=== PATIENT | male | born 1955 | race Caucasian/White ===

== ENCOUNTER 2018-05-17 10:30 | Emergency (ER) | payer BC ==
[2018-05-17] MEDS ORDERED: Aspirin 81 MG Tab.Chew PO ONE (10:41)
[2018-05-17] MEDS ORDERED: Ondansetron 4 MG/2 ML SDV IVPUSH ONE (11:25)
--- NOTE | 2018-05-17 11:35 | EDM.PDOC ---
ED HPI GENERAL MEDICAL PROBLEM - General Chief Complaint: Chest Pain Stated Complaint: sudden weakness Time Seen by Provider: 05/17/18 10:50 Source of Information: Reports: Patient, Significant Other History Limitations: Reports: No Limitations - History of Present Illness INITIAL COMMENTS - FREE TEXT/NARRATIVE: Patient presents with report of sudden onset of weakness and lightheadedness. He was shaving when this started he says, but his has to tell me what he told her on the phone because he can't remember what happened. He doesn't know the day, date, month or year. He doesn't know his birthday; after thinking for several seconds he told me his son's name. His tells me that this is pretty normal for the past 3+ years, but he usually would be able to tell me what happened today in better detail, as he did tell her on the phone earlier. He denies falling or any asymmetric weakness. No facial droop or history of stroke. says the sudden onset of weakness was about 9:45 this morning. - Related Data Allergies Allergy/AdvReac Type Severity Reaction Status Date / Time No Known Allergies Allergy Verified 05/17/18 10:40 Home Meds: Home Meds Escitalopram [Lexapro] 20 mg PO DAILY 05/17/18 [History] Levothyroxine [Levothroid] 137 mcg PO DAILY 05/17/18 [History] Mirtazapine 1 tab PO BEDTIME 05/17/18 [History] buPROPion [buPROPion XL] 300 mg PO DAILY 05/17/18 [History] Past Medical History - Past Surgical History HEENT Surgical History: Reports: Other (See Below) Other HEENT Surgeries/Procedures: ear surgery GI Surgical History: Reports: Cholecystectomy Endocrine Surgical History: Reports: Thyroidectomy Musculoskeletal Surgical History: Reports: Arthroscopic Knee, Shoulder Surgery Social & Family History - Tobacco Use Smoking Status *Q: Never Smoker - Recreational Drug Use Recreational Drug Use: No ED ROS GENERAL - Review of Systems Review Of Systems: See Below Constitutional: Reports: Weakness. Denies: Fever, Chills, Malaise HEENT: Denies: Ear Pain, Throat Pain, Vision Change Respiratory: Denies: Shortness of Breath, Cough Cardiovascular: Reports: Lightheadedness. Denies: Chest Pain, Syncope Endocrine: Reports: Other (hypothyroid) GI/Abdominal: Reports: Nausea. Denies: Abdominal Pain, Diarrhea, Vomiting : Reports: No Symptoms Musculoskeletal: Denies: Neck Pain, Shoulder Pain, Arm Pain, Back Pain, Hand Pain Skin: Denies: Cyanosis, Jaundice, Mottled, Pallor, Diaphoresis Neurological: Reports: Confusion (chronic). Denies: Dizziness, Headache, Numbness, Seizure, Syncope, Trouble Speaking, Difficulty Walking, Weakness Psychiatric: Reports: Confusion, Depression. Denies: Agitation, Anxiety - Physical Exam Exam: See Below Exam Limited By: No Limitations General Appearance: Alert, WD/WN, No Apparent Distress Eye Exam: Bilateral Eye: EOMI, Normal Inspection (full visual valente), PERRL Ears: Normal External Exam, Hearing Grossly Normal Nose: Normal Inspection, No Blood Throat/Mouth: Normal Inspection, Normal Lips, Normal Voice, No Airway Compromise Head Exam: Atraumatic, Normocephalic Neck: Normal Inspection, Supple, Non-Tender, Full Range of Motion. No: Carotid Bruit Respiratory/Chest: No Respiratory Distress, Lungs Clear, Normal Breath Sounds, No Accessory Muscle Use Cardiovascular: Normal Peripheral Pulses, Regular Rate, Rhythm, No Edema, No Gallop, No JVD, No Murmur, No Rub GI/Abdominal: Normal Bowel Sounds, Soft, Non-Tender, No Organomegaly, No Distention, No Abnormal Bruit, No Mass Neuro Exam (Abbreviated): Alert, CN II-XII Intact, No Motor/Sensory Deficits, Confused, Memory Loss Remote Events, Memory Loss Recent Events Back Exam: No: CVA Tenderness (L), CVA Tenderness (R) Extremities: Normal Inspection, Normal Range of Motion, Non-Tender, No Pedal Edema Psychiatric: Flat Affect, Other (apathetic and oblivious but alert and somewhat anxious) Skin Exam: Warm, Dry, Intact, Normal Color, No Rash Course - Vital Signs Last Recorded V/S: Last Vital Signs Temp 97.1 F 05/17/18 11:04 Pulse 73 05/17/18 11:50 Resp 14 05/17/18 11:50 BP 109/60 05/17/18 11:50 Pulse Ox 92 L 05/17/18 11:50 - Orders/Labs/Meds Orders: Active Orders 24 hr Category Date Time Status EKG Documentation Completion [RC] ASDIRECTED Care 05/17/18 10:41 Active EKG 12 Lead [EK] Routine Ther 05/17/18 10:41 Ordered Labs: Laboratory Tests 05/17/18 05/17/18 05/17/18 Range/Units 10:55 10:55 10:55 WBC 6.44 (5.00-10.00) 10^3/uL RBC 5.35 (4.50-6.00) 10^6/uL Hgb 16.4 (13.0-17.0) g/dL Hct 47.5 (40.0-52.0) % MCV 88.8 D (82.0-92.0) fL MCH 30.7 (27.0-31.0) pg MCHC 34.5 (32.0-36.0) g/dL RDW 13.6 (11.5-14.5) % Plt Count 115 L (150-400) 10^3/uL MPV 10.3 (7.4-10.4) fL Immature Gran % (Auto) 0.2 (0.0-5.0) % Neut % (Auto) 75.0 H (50.0-70.0) % Lymph % (Auto) 18.8 L (20.0-40.0) % [place] % (Auto) 5.3 (2.0-8.0) % Eos % (Auto) 0.5 L (1.0-3.0) % Baso % (Auto) 0.2 (0.0-1.0) % Immature Gran # (Auto) 0.01 (0.00-0.50) 10^3/uL Neut # (Auto) 4.84 (2.50-7.00) 10^3/uL Lymph # (Auto) 1.21 (1.00-4.00) 10^3/uL [place] # (Auto) 0.34 (0.10-0.80) 10^3/uL Eos # (Auto) 0.03 L (0.10-0.30) 10^3/uL Baso # (Auto) 0.01 (0.00-0.10) 10^3/uL Sodium 140 (136-145) mmol/L Potassium 4.0 (3.3-5.3) mmol/L Chloride 105 (98-115) mmol/L Carbon Dioxide 25.4 (21.0-32.0) mmol/L Anion Gap 13.6 (5-15) mmol/L BUN 11 (6-25) mg/dL Creatinine 0.89 (0.51-1.17) mg/dL Est Cr Clr Drug Dosing 87.72 mL/min Estimated GFR (MDRD) > 60 mL/min Glucose 116 H (75 - 99) mg/dL Calcium 8.9 (8.7-10.3) mg/dL Troponin I < 0.04 (0.00-0.070) ng/mL TSH, Ultra Sensitive 0.810 (0.340-4.820) uIU/mL Specimen Type Urine Color (YELLOW) Urine Appearance (CLEAR) Urine pH (5.0-9.0) Ur Specific [place] (1.005-1.030) Urine Protein (NEGATIVE) mg/dL Urine Glucose (UA) (NEGATIVE) mg/dL Urine Ketones (NEGATIVE) mg/dL Urine Occult Blood (NEGATIVE) Urine Nitrite (NEGATIVE) Urine Bilirubin (NEGATIVE) Urine Urobilinogen (0.2-1.0) E.U./dL Ur Leukocyte Esterase (NEGATIVE) Urine RBC (0-5) /HPF Urine WBC (0-5) /HPF Ur Epithelial Cells /LPF Urine Bacteria (NONE TO FEW) /HPF Urine Opiates Screen (NEGATIVE) Ur Oxycodone Screen (NEGATIVE) Urine Methadone Screen (NEGATIVE) Ur Propoxyphene Screen (NEGATIVE) Ur Barbiturates Screen (NEGATIVE) Ur Tricyclics Screen (NEGATIVE) Ur Phencyclidine Scrn (NEGATIVE) Ur Amphetamine Screen (NEGATIVE) U Methamphetamines Scrn (NEGATIVE) U Benzodiazepines Scrn (NEGATIVE) U Cocaine Metab Screen (NEGATIVE) U Marijuana (THC) Screen (NEGATIVE) 05/17/18 05/17/18 Range/Units 12:36 12:36 WBC (5.00-10.00) 10^3/uL RBC (4.50-6.00) 10^6/uL Hgb (13.0-17.0) g/dL Hct (40.0-52.0) % MCV (82.0-92.0) fL MCH (27.0-31.0) pg MCHC (32.0-36.0) g/dL RDW (11.5-14.5) % Plt Count (150-400) 10^3/uL MPV (7.4-10.4) fL Immature Gran % (Auto) (0.0-5.0) % Neut % (Auto) (50.0-70.0) % Lymph % (Auto) (20.0-40.0) % [place] % (Auto) (2.0-8.0) % Eos % (Auto) (1.0-3.0) % Baso % (Auto) (0.0-1.0) % Immature Gran # (Auto) (0.00-0.50) 10^3/uL Neut # (Auto) (2.50-7.00) 10^3/uL Lymph # (Auto) (1.00-4.00) 10^3/uL [place] # (Auto) (0.10-0.80) 10^3/uL Eos # (Auto) (0.10-0.30) 10^3/uL Baso # (Auto) (0.00-0.10) 10^3/uL Sodium (136-145) mmol/L Potassium (3.3-5.3) mmol/L Chloride (98-115) mmol/L Carbon Dioxide (21.0-32.0) mmol/L Anion Gap (5-15) mmol/L BUN (6-25) mg/dL Creatinine (0.51-1.17) mg/dL Est Cr Clr Drug Dosing mL/min Estimated GFR (MDRD) mL/min Glucose (75 - 99) mg/dL Calcium (8.7-10.3) mg/dL Troponin I (0.00-0.070) ng/mL TSH, Ultra Sensitive (0.340-4.820) uIU/mL Specimen Type Urinblad Urine Color Yellow (YELLOW) Urine Appearance Slightly cloudy H (CLEAR) Urine pH 6.0 (5.0-9.0) Ur Specific [place] >= 1.030 (1.005-1.030) Urine Protein Negative (NEGATIVE) mg/dL Urine Glucose (UA) Negative (NEGATIVE) mg/dL Urine Ketones Trace H (NEGATIVE) mg/dL Urine Occult Blood Negative (NEGATIVE) Urine Nitrite Negative (NEGATIVE) Urine Bilirubin Negative (NEGATIVE) Urine Urobilinogen 0.2 (0.2-1.0) E.U./dL Ur Leukocyte Esterase Negative (NEGATIVE) Urine RBC 0-5 (0-5) /HPF Urine WBC 0-5 (0-5) /HPF Ur Epithelial Cells Few /LPF Urine Bacteria Few (NONE TO FEW) /HPF Urine Opiates Screen Negative (NEGATIVE) Ur Oxycodone Screen Negative (NEGATIVE) Urine Methadone Screen Negative (NEGATIVE) Ur Propoxyphene Screen Negative (NEGATIVE) Ur Barbiturates Screen Negative (NEGATIVE) Ur Tricyclics Screen Negative (NEGATIVE) Ur Phencyclidine Scrn Negative (NEGATIVE) Ur Amphetamine Screen Negative (NEGATIVE) U Methamphetamines Scrn Negative (NEGATIVE) U Benzodiazepines Scrn Negative (NEGATIVE) U Cocaine Metab Screen Negative (NEGATIVE) U Marijuana (THC) Screen Negative (NEGATIVE) Meds: Medications Discontinued Medications Generic Name Dose Route Start Last Admin Trade Name [place] PRN Reason Stop Dose Admin Aspirin 324 mg 05/17/18 10:41 05/17/18 11:10 Aspirin PO 05/17/18 10:42 324 mg ONETIME ONE Administration Ondansetron HCl 4 mg 05/17/18 11:25 05/17/18 11:30 Zofran IVPUSH 05/17/18 11:26 4 mg ONETIME ONE Administration - Re-Assessments/Exams Free Text/Narrative Re-Assessment/Exam: 05/17/18 13:[address] is negative for acute pathology. Labs okay. Discussed findings with patient, and adult son. They are concerned with his amnesia progressing, he now cannot remember shaving this morning. Initially he told me he was shaving but couldn't describe to me what happened. Now he can't remember shaving. and son tell me that this isn't normal for him. He became tearful and said he doesn't want to live anymore. When I asked him if he is a danger to himself or how he would kill himself he wouldn't answer. He has had chronic problems with memory but not like this and they want to rule out stroke and get going with treatment for it and/or whatever is causing the amnesia and depression. I called and discussed case with Dr. Heck, stroke neurologist, who feels emergent MRI is needed and wants him to come to the ER for further evaluation. Dr. Flores, ER is accepting. Patient and family are agreeable with this. Patient is discharged from ER in medically stable condition. Departure - Departure Time of Disposition: 12:59 Disposition: DC/Tfer to Acute Hospital 02 Condition: Good Clinical Impression: Weakness of both arms, Amnesia, Depression, Suicidal ideation - Discharge Information Referrals: Victoria English MD [Primary Care Provider] - Forms: ED Department Discharge - My Orders Last 24 Hours: My Active Orders 05/17/18 10:41 EKG Documentation Completion [RC] ASDIRECTED EKG 12 Lead [EK] Routine - Assessment/Plan Last 24 Hours: My Active Orders 05/17/18 10:41 EKG Documentation Completion [RC] ASDIRECTED EKG 12 Lead [EK] Routine
[2018-05-17 11:42] LABS: ANION GAP 13.6 mmol/L (5-15); CHLORIDE,CL 105 mmol/L (98-115); SODIUM,NA 140 mmol/L (136-145)
--- NOTE | 2018-05-17 11:46 | CR ---
[id number] RAD/RAD Chest PA And Lateral EXAM: RAD Chest PA And Lateral CLINICAL DATA: CHEST PAIN COMPARISON: CORRELATION IS MADE WITH THE EXAM OF JUNE 18, 2009. FINDINGS: The lungs are clear. Surgical changes of both shoulders are seen. The cardiomediastinal contour is normal. The regional bones and soft tissues are unremarkable. IMPRESSION: NO ACUTE PROCESS. Saroj Aguayo MD 05/17/18 [id number] Thank you for allowing us to participate in the care of your patient.
--- NOTE | 2018-05-17 12:05 | CT ---
[id number] CT/CT Head WO IV EXAM: CT Head WO IV CLINICAL DATA: ALTERED MENTAL STATUS COMPARISON: NO PREVIOUS SIMILAR EXAM IS AVAILABLE FOR COMPARISON. FINDINGS: There is no mass or mass effect. There is no hemorrhage or hydrocephalus. There are no extra-axial fluid collections. There are no sites of abnormal attenuation. IMPRESSION: NO PLAIN CT EVIDENCE OF ACUTE INTRACRANIAL PROCESS. Saroj Aguayo MD 05/17/18 [id number] Thank you for allowing us to participate in the care of your patient.
== END 2018-05-17 13:25 ==
LOC: KA.ED 10:30
DX: R53.1 Weakness (principal); R41.3 Other amnesia; F32.9 Major depressive disorder, single episode, unspecified; Z79.899 Other long term (current) drug therapy
CPT/HCPCS: 70450; 71046; 80048; 80305; 81001; 84443; 84484; 85025; 93005; 96374; 99285; A9270; J2405

== ENCOUNTER 2018-12-26 16:26 | Emergency (ER) | payer BC ==
[2018-12-26] MEDS ORDERED: Diphtheria,Pertussis(Acell),Tetanus Vaccine 0.5 ML SDV IM ONE (16:58)
--- NOTE | 2018-12-26 16:59 | CT ---
[id number] CT/CT Head WO IV EXAM: CT Head WO IV CLINICAL DATA: TRAUMA. COMPARISON STUDY: May 2018. FINDINGS: No intracranial hemorrhage, extra-axial fluid collection, mass, or acute ischemia. No hydrocephalus. Mild to moderate diffuse parenchymal atrophy symmetrically throughout posterior hemispheres. Empty sella, incidental finding likely of no clinical significance. No calvarial fracture. Paranasal sinuses and mastoid air cells are clear. IMPRESSION: No acute intracranial findings. Gabriel Limon MD 12/26/18 [id number] Thank you for allowing us to participate in the care of your patient.
--- NOTE | 2018-12-26 17:00 | EDM.PDOC ---
ED HPI GENERAL MEDICAL PROBLEM - General Chief Complaint: Head Injury Stated Complaint: FELL AT HOME HIT HEAD Time Seen by Provider: 12/26/18 16:30 Source of Information: Reports: Patient History Limitations: Reports: No Limitations - History of Present Illness INITIAL COMMENTS - FREE TEXT/NARRATIVE: 63 YO WM presents to ER with scalp laceration from hitting his head on a stair after slip and fall. Pt reports fell down a couple of stairs but denies any loss of consciousness. Pt denies neck pain, headache, nausea/vomiting or other injuries after fall. Pt denies syncope, chest pain, shortness of breath. GCS-15 and alert and oriented x 4. Laceration to scalp is approximately 4cm vertical laceration to occipital region of scalp. Bleeding controlled. Onset: Today Location: Reports: Head Quality: Reports: Ache Severity: Mild Improves with: Reports: None Worsens with: Reports: None Associated Symptoms: Reports: No Other Symptoms, Headaches - Related Data Allergies Allergy/AdvReac Type Severity Reaction Status Date / Time No Known Allergies Allergy Verified 12/26/18 16:49 Home Meds: Home Meds Escitalopram [Lexapro] 20 mg PO DAILY 05/17/18 [History] Levothyroxine [Levothroid] 137 mcg PO DAILY 05/17/18 [History] buPROPion [buPROPion XL] 300 mg PO DAILY 05/17/18 [History] Fish Oil/[place]-3 Fatty Acids [Fish Oil 1,000 MG] 2,000 mg PO DAILY 12/26/18 [ History] Past Medical History - Past Surgical History HEENT Surgical History: Reports: Other (See Below) Other HEENT Surgeries/Procedures: ear surgery GI Surgical History: Reports: Cholecystectomy Endocrine Surgical History: Reports: Thyroidectomy Musculoskeletal Surgical History: Reports: Arthroscopic Knee, Shoulder Surgery Social & Family History - Tobacco Use Smoking Status *Q: Never Smoker Second Hand Smoke Exposure: Yes - Caffeine Use Caffeine Use: Reports: Soda - Recreational Drug Use Recreational Drug Use: No ED ROS GENERAL - Review of Systems Review Of Systems: See Below Constitutional: Reports: No Symptoms HEENT: Reports: No Symptoms Respiratory: Reports: No Symptoms Cardiovascular: Reports: No Symptoms Endocrine: Reports: No Symptoms GI/Abdominal: Reports: No Symptoms : Reports: No Symptoms Musculoskeletal: Reports: No Symptoms Skin: Reports: No Symptoms Neurological: Reports: No Symptoms, Headache Psychiatric: Reports: No Symptoms Hematologic/Lymphatic: Reports: No Symptoms Immunologic: Reports: No Symptoms ED EXAM, HEAD INJURY - Physical Exam Exam: See Below Exam Limited By: No Limitations General Appearance: Alert, WD/WN, No Apparent Distress Head: Normocephalic, Scalp Lacerations, Scalp Tenderness. No: Scalp Ecchymosis , Scalp Hematoma, Active Bleeding, Pete's Sign, Flap, Facial Lacerations, Facial Swelling, Sinus Tenderness, Facial Tenderness, Raccoon Eyes Nexus Criteria: No: Posterior, Midline Cervical Tenderness, Evidence of Intoxication, Altered Level of Consciousness, Focal Neurological Deficit, Painful Distraction Injuries Eyes: Bilateral Eye: EOMI, PERRL Throat/Mouth: Normal Inspection, Normal Lips, Normal Teeth, Normal Gums, Normal Oropharynx, Normal Voice, No Airway Compromise Neck: Non-Tender, Full Range of Motion, Normal Alignment, Normal Inspection Respiratory: No Respiratory Distress, Lungs Clear, Normal Breath Sounds, No Accessory Muscle Use, Chest Non-Tender Cardiovascular: Normal Peripheral Pulses, Regular Rate, Rhythm, No Edema, No Gallop, No JVD, No Murmur, No Rub GI/Abdominal Exam: Normal Bowel Sounds, Soft, Non-Tender, No Organomegaly, No Distention, No Abnormal Bruit, No Mass Back Exam: Full Range of Motion, Normal Inspection, NT Extremities: Normal Inspection, Normal Range of Motion, Non-Tender, No Pedal Edema, Normal Capillary Refill Neurologic: pet food deboner II-XII nml As Tested, No Motor/Sensory Deficits, Alert, Normal Mood/Affect, Oriented x 3 Skin: Normal Color, Warm/Dry - [place] Coma Score Best Eye Response (Monique): (4) Open Spontaneously Best Verbal Response (Monique): (5) Oriented Best Motor Response ([place]): (6) Obeys Commands ED LACERATION/WOUND & JOSHUA PROC - Laceration/Wound Repair Right Mid-Posterior Head Lac/wound length in cm: 4 Appearance: Superficial Distal NVT: Neuro & Vascular Intact Skin Prep: Chlorhexidine ([place]), Saline Exploration/Debridement/Repair: Wound Explored, In a Bloodless Field, Explored to Base Closed with: [place] # of Sutures: 2 Sterile Dressing Applied: None Tetanus Status Addressed: Yes Complications: No Course - Vital Signs Last Recorded V/S: Last Vital Signs Temp 36.4 C 12/26/18 16:45 Pulse 71 12/26/18 16:45 Resp 20 12/26/18 16:45 BP 123/77 12/26/18 16:45 Pulse Ox 95 12/26/18 16:45 - Orders/Labs/Meds Orders: Active Orders 24 hr Category Date Time Status Head wo Cont [CT] Stat Exams 12/26/18 16:41 Ordered - Radiology Interpretation Free Text/Narrative:: CT head- NAD Departure - Departure Time of Disposition: 17:14 Disposition: Home, Self-Care 01 Condition: Good Clinical Impression: Minor head injury Qualifiers: Encounter type: initial encounter Qualified Code(s): S09.90XA - Unspecified injury of head, initial encounter Scalp laceration Qualifiers: Encounter type: initial encounter Qualified Code(s): S01.01XA - Laceration without foreign body of scalp, initial encounter - Discharge Information Instructions: Stitches, Viky, or Adhesive Wound Closure, Head Injury, Adult , [id number] Referrals: Victoria English MD [Primary Care Provider] - Forms: ED Department Discharge Additional Instructions: 1. discharge home 2. head injury precautions given 3. staple removal 7-10 days at clinic 4. return to ER for worsening symptoms 5. follow up in clinic for recheck this week - My Orders Last 24 Hours: My Active Orders 12/26/18 16:41 Head wo Cont [CT] Stat - Assessment/Plan Last 24 Hours: My Active Orders 12/26/18 16:41 Head wo Cont [CT] Stat Assessment:: 1. 4cm scalp laceration \ 2. minor head injury Plan: 1. discharge home 2. head injury precautions given 3. staple removal 7-10 days at clinic 4. return to ER for worsening symptoms 5. follow up in clinic for recheck this week
== END 2018-12-26 17:23 | disposition home or self-care (01) ==
LOC: KA.ED 16:26
DX: S01.01XA Laceration without foreign body of scalp, initial encounter (principal); Z90.49 Acquired absence of other specified parts of digestive tract; Z98.890 Other specified postprocedural states; Z79.890 Hormone replacement therapy; Z79.899 Other long term (current) drug therapy; Z23 Encounter for immunization; W01.0XXA Fall on same level from slipping, tripping and stumbling without subsequent striking against object, initial encounter
CPT/HCPCS: 12002; 70450; 90471; 90715; 99283-25

== ENCOUNTER 2021-09-11 14:50 | Emergency (ER) | payer MEDICARE, OTHER ==
[2021-09-11 15:46] LABS: CHLORIDE,CL 103 mmol/L (98-107); SODIUM,NA 138 mmol/L (136-145)
[2021-09-11] MEDS ORDERED: Bacitracin/Neomycin/Polymyxin B Oint 28.4 GM Tube ONE (16:07)
[2021-09-11] MEDS ORDERED: Bacitracin/Neomycin/Polymyxin B Oint 28.4 GM Tube TOP ONE (16:09)
[2021-09-11] MEDS ORDERED: Amoxicillin/Clavulanate K 875-125 MG Tab PO ONE ×2 (16:35→17:23)
[2021-09-11] MEDS ORDERED: Amoxicillin/Clavulanate K 875-125 MG Tab ONE (17:21)
== END 2021-09-11 18:15 ==
LOC: KA.ED 14:50
DX: S01.81XA Laceration without foreign body of other part of head, initial encounter (principal); J69.0 Pneumonitis due to inhalation of food and vomit; E03.9 Hypothyroidism, unspecified; Z79.899 Other long term (current) drug therapy; W18.09XA Striking against other object with subsequent fall, initial encounter
CPT/HCPCS: 12002; 36415; 70450; 71045; 72125; 80048; 85025; 99283; 99284-25; A9270-GY